=== PATIENT | male | born 1960 | race Caucasian/White ===

== ENCOUNTER 2019-03-28 07:46 | Inpatient (IN) | payer BC, OTHER ==
[~2019-03-28] VITALS: Ht 180.3 cm; Wt 148.9 kg
[2019-03-28] MEDS ORDERED: ACETAMINOPHEN 500 MG TAB PO ONE (08:15)
[2019-03-28 08:36] LABS: Basophils # (auto) 0.1 uL; Basophils % (auto) 0.8 % (0.0-2.0); Eosinophils # (auto) 0 uL; Hematocrit 45.2 % (41.0-53.0); Hemoglobin 15.3 g/dL (13.5-17.5); Lymphocytes # (auto) 0.6 uL; Lymphocytes % (auto) 3.4 % (10.0-50.0); Mean Corpuscular Hemoglobin 30.4 pg (28.0-32.0); Mean Corpuscular Hgb Conc. 33.9 g/dL (32.0-36.0); Mean Corpuscular Volume 89.7 fL (80.0-100.0); Monocytes # (auto) 1.3 uL; Monocytes % (auto) 7.8 % (0.0-12.0); Neutrophils # (auto) 15.3 uL; Platelet Count (auto) 255 10^3/uL (140-450); Red Blood Cells 5.04 10^6/uL (4.5-5.90); White Blood Cell 17.4 10^3/uL (4.4-10.8)
[2019-03-28 08:48] LABS: INR 1.02 (0.9-1.15); Partial Thromboplastin Time 38.5 sec (23.64-32.05)
[2019-03-28 08:49] LABS: Albumin 3.5 g/dL (3.4-5.0); Calcium 9.2 mg/dL (8.5-10.1); Potassium 4.9 mmol/L (3.5-5.1)
[2019-03-28 08:53] LABS: BUN/Creatinine Ratio 11.4; Bilirubin, Total 0.6 mg/dL (0.2-1.0); Total Protein 8.2 g/dL (6.4-8.2)
[2019-03-28 09:55] LABS: Urine WBC None Seen /hpf (0 - 3)
[2019-03-28 10:07] LABS: Urine Bacteria NONE SEEN /hpf (None Seen); Urine Blood Negative /uL (Negative); Urine Specific Gravity 1.017 (1.001-1.035)
[2019-03-28] MEDS ORDERED: NITROGLYCERIN 0.4 MG SL TAB SL PRN (11:30)
[2019-03-28] MEDS ORDERED: ACETAMINOPHEN 500 MG TAB PO PRN (11:30)
[2019-03-28] MEDS ORDERED: DEXTROSE (50%) 50ML SYRG IV PRN (11:30)
[2019-03-28] MEDS ORDERED: LACTULOSE 20Gm/30ML SOLN PO PRN (11:30)
[2019-03-28] MEDS ORDERED: PROMETHAZINE HCL 25 MG/ML 1ML IV PRN (11:30)
[2019-03-28] MEDS ORDERED: NALBUPHINE HCL 10 MG/1ml INJECTION IV PRN (11:30)
[2019-03-28] MEDS ORDERED: PIPERACILLIN-TAZOB 3.375GM 100 ML IV ONE (11:30)
[2019-03-28] MEDS ORDERED: traMADol HCL 50 MG TAB PO PRN (11:30)
[2019-03-28] MEDS ORDERED: MORPHINE SULF INJ 2 MG/ML SYRINGE 1ML IV PRN (11:30)
[2019-03-28] MEDS ORDERED: TEMAZEPAM 15 MG CAP PO PRN (11:30)
[2019-03-28] MEDS ORDERED: PANTOPRAZOLE 40 MG TAB PO ONE (11:45)
[2019-03-28] MEDS: PIPERACILLIN-TAZOB 3.375GM 100 ML IV SCH ×2 (12:50→17:52)
[2019-03-28] MEDS: SODIUM CHLORIDE 0.9% 1,000 ML IV SCH ×2 (12:50→22:20)
[2019-03-28] MEDS: LINEZOLID 600MG/300ML 300 ML IV SCH ×2 (12:50→22:20)
[2019-03-28] MEDS: ACCU-CHEK COMFORT CURVE STRIP VI SCH ×3 (12:50→22:20)
[2019-03-28] MEDS ORDERED: GABA300C10 PO (15:39)
[2019-03-28] MEDS ORDERED: METF-370 PO (15:39)
[2019-03-28] MEDS ORDERED: FENO54TA4 PO (15:39)
[2019-03-28] MEDS ORDERED: FLUO-125 PO (15:39)
--- NOTE | 2019-03-28 20:15 | NUR ---
Admission Note Pt admitted to room 204 in stable cond. ISO for Hx MRSA skin/ wound. Pt oriented to room and procedures and POC discussed with pt and pt verbalizes understaning. Bed is low, wheels are locked, and call light is with in reach.
[2019-03-28 22:00] VITALS: BP 100/59
[2019-03-29] MEDS: PIPERACILLIN-TAZOB 3.375GM 100 ML IV SCH ×4 (01:00→18:12)
--- NOTE | 2019-03-29 01:00 | NUR ---
Pt is declining pics of scrotum w/ penile implant site at this time.
[2019-03-29 05:00] VITALS: BP 131/69
[2019-03-29 05:33] LABS: Basophils # (auto) 0 uL; Basophils % (auto) 0.1 % (0.0-2.0); Eosinophils # (auto) 0.1 uL; Eosinophils % (auto) 0.8 % (0.0-7.0); Hematocrit 42.2 % (41.0-53.0); Hemoglobin 13.9 g/dL (13.5-17.5); Lymphocytes # (auto) 0.8 uL; Lymphocytes % (auto) 6.2 % (10.0-50.0); Mean Corpuscular Hgb Conc. 32.9 g/dL (32.0-36.0); Mean Corpuscular Volume 90.9 fL (80.0-100.0); Monocytes # (auto) 1.4 uL; Monocytes % (auto) 11.3 % (0.0-12.0); Neutrophils # (auto) 10.4 uL; Neutrophils % (auto) 81.6 % (37.0-80.0); Platelet Count (auto) 220 10^3/uL (140-450); Red Blood Cells 4.64 10^6/uL (4.5-5.90); White Blood Cell 12.8 10^3/uL (4.4-10.8)
[2019-03-29 06:02] LABS: Potassium 4.7 mmol/L (3.5-5.1)
[2019-03-29 06:12] LABS: BUN/Creatinine Ratio 12.6; Bilirubin, Total 0.6 mg/dL (0.2-1.0); Calcium 8.8 mg/dL (8.5-10.1); Total Protein 7.5 g/dL (6.4-8.2)
--- NOTE | 2019-03-29 06:30 | NUR ---
Upon am assessment pt making jokes and laughing, stating that, " You wanted to take pornographic pictures last night." Further education given on wound care and wound photos with the pt at this time. Pt verbalizes understanding and still refuses photo to be taken of scrotum.
[2019-03-29] MEDS: ACCU-CHEK COMFORT CURVE STRIP VI SCH ×4 (06:44→21:48)
[2019-03-29] MEDS: SODIUM CHLORIDE 0.9% 1,000 ML IV SCH ×2 (06:46→18:11)
--- NOTE | 2019-03-29 07:30 | NUR ---
Opening Shift Note Assumed care of patient, awake and alert. No S/S of distress/SOB or pain. Instructed on POC and to call for assist PRN, will continue to monitor for changes Q1hr and PRN.
[2019-03-29 08:00] VITALS: BP 101/56
[2019-03-29 08:28] VITALS: BP 101/56
[2019-03-29] MEDS: PANTOPRAZOLE 40 MG TAB PO SCH (09:33)
[2019-03-29] MEDS: LINEZOLID 600MG/300ML 300 ML IV SCH ×2 (09:33→21:48)
[2019-03-29] MEDS: ENOXAPARIN SOD 40 MG/0.4 ML SYRINGE SC SCH (09:34)
[2019-03-29 12:49] VITALS: BP 120/70
[2019-03-29 15:13] LABS: Cholesterol 144 mg/dL (< 200)
[2019-03-29 15:16] LABS: HDL Cholesterol 46 mg/dL (40-59); LDL Cholesterol 94 mg/dL (< 100); Triglycerides 114 mg/dL (< 150)
[2019-03-29 16:37] VITALS: BP 121/67
[2019-03-29 21:38] VITALS: BP 101/56
[2019-03-30] MEDS: PIPERACILLIN-TAZOB 3.375GM 100 ML IV SCH ×4 (00:33→17:47)
[2019-03-30] MEDS: SODIUM CHLORIDE 0.9% 1,000 ML IV SCH ×3 (02:46→23:24)
[2019-03-30 04:37] VITALS: BP 116/62
[2019-03-30 05:47] LABS: Basophils # (auto) 0 uL; Basophils % (auto) 0.2 % (0.0-2.0); Eosinophils # (auto) 0.2 uL; Eosinophils % (auto) 2.2 % (0.0-7.0); Hematocrit 39.7 % (41.0-53.0); Hemoglobin 13.5 g/dL (13.5-17.5); Lymphocytes # (auto) 0.8 uL; Lymphocytes % (auto) 8.8 % (10.0-50.0); Mean Corpuscular Hemoglobin 30.7 pg (28.0-32.0); Mean Corpuscular Hgb Conc. 34.1 g/dL (32.0-36.0); Mean Corpuscular Volume 90.1 fL (80.0-100.0); Monocytes # (auto) 1.1 uL; Monocytes % (auto) 11.5 % (0.0-12.0); Neutrophils # (auto) 7.1 uL; Neutrophils % (auto) 77.3 % (37.0-80.0); Nucleated Red Blood Cells % 0.1 %; Platelet Count (auto) 219 10^3/uL (140-450); Red Cell Distribution Width 13.8 % (11.8-14.3); White Blood Cell 9.2 10^3/uL (4.4-10.8)
[2019-03-30 06:09] LABS: Potassium 4.5 mmol/L (3.5-5.1)
[2019-03-30 06:13] LABS: BUN/Creatinine Ratio 12.3; Calcium 8.8 mg/dL (8.5-10.1); Magnesium 2.9 mg/dL (1.6-2.6)
[2019-03-30] MEDS: ACCU-CHEK COMFORT CURVE STRIP VI SCH ×4 (06:14→22:11)
--- NOTE | 2019-03-30 08:00 | NUR ---
Morning note patient resting in bed with even and unlabored respirations, no distress noted. Instructed patient on POC, fall precautions and to call for assistance as needed. patient verbalized understanding. Fall precautions in place with call light within reach. Will continue to monitor q1hr & PRN.
[2019-03-30 08:50] VITALS: BP 135/76
[2019-03-30] MEDS: PANTOPRAZOLE 40 MG TAB PO SCH (09:18)
[2019-03-30] MEDS: ENOXAPARIN SOD 40 MG/0.4 ML SYRINGE SC SCH (09:19)
[2019-03-30] MEDS: LINEZOLID 600MG/300ML 300 ML IV SCH ×2 (09:19→22:11)
--- NOTE | 2019-03-30 12:01 | NUR ---
RE: Nephrology consult Notified community nurse of nephrology consult. Anastacia, community nurse, verbalized understanding. Anastacia to call in nephrology consult.
[2019-03-30 12:12] VITALS: BP 128/73
--- NOTE | 2019-03-30 15:06 | NUR ---
AT BEDSIDE DR CARABALLO AT BEDSIDE DISCUSSING POC WITH PATIENT Signed: 03/30/19 at 1631 by SN MONIQUE <Co-Signature Required> Co-Signed: 03/30/19 at 1631 by Malgorzata Jones RN
[2019-03-30 16:54] VITALS: BP 112/68
--- NOTE | 2019-03-30 18:53 | NUR ---
Closing note Patient resting in bed with even and unlabored respirations, no distress noted. Fall precautions in place with call light within reach.
--- NOTE | 2019-03-30 19:18 | NUR ---
Care endorsed to Bindu Kessler RN.
[2019-03-30 22:00] VITALS: BP 114/62
[2019-03-30] MEDS ORDERED: FLUoxetine HCL 20 MG CAP PO ONE (22:00)
[2019-03-30] MEDS ORDERED: GABAPENTIN 300 MG CAP PO ONE (22:00)
[2019-03-31] MEDS: PIPERACILLIN-TAZOB 3.375GM 100 ML IV SCH ×5 (01:22→23:52)
[2019-03-31 05:30] VITALS: BP 116/73
[2019-03-31] MEDS: ACCU-CHEK COMFORT CURVE STRIP VI SCH ×4 (06:35→21:39)
--- NOTE | 2019-03-31 07:17 | NUR ---
RE: urine results- notified MD Verbally notified Dr. Nj of results. MD verbalized understanding. MD to review POC.
[2019-03-31 08:45] VITALS: BP 142/83
[2019-03-31] MEDS: GABAPENTIN 300 MG CAP PO SCH (09:20)
[2019-03-31] MEDS: LINEZOLID 600MG/300ML 300 ML IV SCH ×2 (09:20→21:39)
[2019-03-31] MEDS: ENOXAPARIN SOD 40 MG/0.4 ML SYRINGE SC SCH (09:20)
[2019-03-31] MEDS: FLUoxetine HCL 20 MG CAP PO SCH (09:20)
[2019-03-31] MEDS: PANTOPRAZOLE 40 MG TAB PO SCH (09:21)
[2019-03-31] MEDS: SODIUM CHLORIDE 0.9% 1,000 ML IV SCH ×3 (09:24→19:24)
[2019-03-31 12:02] VITALS: BP 126/70
[2019-03-31 16:47] VITALS: BP 121/49
--- NOTE | 2019-03-31 19:19 | NUR ---
Care endorsed to POPPY Coleman. Patient resting in bed with even and unlabored respirations, no distress noted. Fall precautions in place with call light within reach.
--- NOTE | 2019-03-31 20:01 | NUR ---
Opening Shift Note Assumed care of patient, awake and alert. No S/S of distress/SOB or pain. Instructed on POC and to call for assist PRN, will continue to monitor for changes Q1hr and PRN.Talking with his girlfriend .
[2019-03-31 22:00] VITALS: BP 123/66
[2019-04-01 05:00] VITALS: BP 118/68
[2019-04-01] MEDS: SODIUM CHLORIDE 0.9% 1,000 ML IV SCH ×2 (05:22→15:48)
[2019-04-01] MEDS: PIPERACILLIN-TAZOB 3.375GM 100 ML IV SCH ×2 (05:23→12:20)
[2019-04-01] MEDS: ACCU-CHEK COMFORT CURVE STRIP VI SCH ×2 (05:24→11:30)
[2019-04-01 06:26] LABS: Basophils # (auto) 0 uL; Basophils % (auto) 0.6 % (0.0-2.0); Eosinophils # (auto) 0.2 uL; Eosinophils % (auto) 4.6 % (0.0-7.0); Hematocrit 40.6 % (41.0-53.0); Hemoglobin 13.7 g/dL (13.5-17.5); Lymphocytes # (auto) 0.8 uL; Lymphocytes % (auto) 15.8 % (10.0-50.0); Mean Corpuscular Hemoglobin 30.4 pg (28.0-32.0); Mean Corpuscular Hgb Conc. 33.7 g/dL (32.0-36.0); Mean Corpuscular Volume 90.3 fL (80.0-100.0); Monocytes # (auto) 0.6 uL; Monocytes % (auto) 11.2 % (0.0-12.0); Neutrophils # (auto) 3.6 uL; Neutrophils % (auto) 67.8 % (37.0-80.0); Nucleated Red Blood Cells % 0.1 %; Platelet Count (auto) 277 10^3/uL (140-450); Red Cell Distribution Width 13.4 % (11.8-14.3); White Blood Cell 5.3 10^3/uL (4.4-10.8)
[2019-04-01 06:28] LABS: Potassium 4.5 mmol/L (3.5-5.1)
[2019-04-01 06:36] LABS: BUN/Creatinine Ratio 13.3
[2019-04-01 08:00] VITALS: BP 111/72
[2019-04-01 08:35] VITALS: BP 111/72
[2019-04-01] MEDS: ENOXAPARIN SOD 40 MG/0.4 ML SYRINGE SC SCH (10:07)
[2019-04-01] MEDS: GABAPENTIN 300 MG CAP PO SCH (10:07)
[2019-04-01] MEDS: LINEZOLID 600MG/300ML 300 ML IV SCH (10:07)
[2019-04-01] MEDS: PANTOPRAZOLE 40 MG TAB PO SCH (10:07)
[2019-04-01] MEDS: FLUoxetine HCL 20 MG CAP PO SCH (10:07)
--- NOTE | 2019-04-01 11:05 | NUR ---
DR JESSIKA GARCIA.
[2019-04-01 13:08] VITALS: BP 136/72
[2019-04-01 14:40] VITALS: BP 136/72
--- NOTE | 2019-04-01 15:59 | NUR ---
Discharge instructions given as ordered. Encourage to follow up with PMD as instructed. All questions and concerns addressed. Patient verbalized understanding. Medication reconciliation form completed and copy given to patient. No Home medications held in Pharmacy and none to be returned to patient, and no needed vaccines given. IV removed with catheter intact, pressure dressing applied. Telemetry unit returned to ICU. Patient taken to taxi via ambulation with all personal belongings and prescription, accompanied by staff and family member. No distress noted at time of departure.
== END 2019-04-01 16:00 | disposition home or self-care (01) | DRG 871 ==
LOC: EDBD 07:46 → ER 07:49 → TELE 07:50 → TELE-CENTR 20:14
PROVIDERS: ADMIT Internal Medicine; ATTEND Internal Medicine
DX: A41.9 Sepsis, unspecified organism (principal); N17.0 Acute kidney failure with tubular necrosis; Z68.42 Body mass index [BMI] 45.0-49.9, adult; T83.6 Infection and inflammatory reaction due to prosthetic device, implant and graft in genital tract; E66.01 Morbid (severe) obesity due to excess calories; B95.62 Methicillin resistant Staphylococcus aureus infection as the cause of diseases classified elsewhere; E11.40 Type 2 diabetes mellitus with diabetic neuropathy, unspecified; N49.2 Inflammatory disorders of scrotum; E11.65 Type 2 diabetes mellitus with hyperglycemia; Y83.8 Other surgical procedures as the cause of abnormal reaction of the patient, or of later complication, without mention of misadventure at the time of the procedure; E78.5 Hyperlipidemia, unspecified; N18.3 Chronic kidney disease, stage 3 (moderate); E11.22 Type 2 diabetes mellitus with diabetic chronic kidney disease; Z86.14 Personal history of Methicillin resistant Staphylococcus aureus infection; Z85.46 Personal history of malignant neoplasm of prostate; Z90.79 Acquired absence of other genital organ(s); Z90.89 Acquired absence of other organs; Z80.8 Family history of malignant neoplasm of other organs or systems; Z92.3 Personal history of irradiation; Z79.899 Other long term (current) drug therapy; Y92.89 Other specified places as the place of occurrence of the external cause
CPT/HCPCS: 36415; 70450; 71046; 74176; 76775; 76870; 80048; 80053; 80061; 81001; 82306; 82962; 83036; 83605; 83735; 83970; 85025; 85610; 85652; 85730; 87040; 87077; 87086; 87088; 87186; 87205; 93005; 96365; 96366; G0378; J2543